=== PATIENT | female | born 1940 | race Caucasian/White ===

== ENCOUNTER 2024-11-23 09:43 | Emergency (ER) | payer MEDICARE, SELFPAY ==
[2024-11-23] VITALS (11 sets, daily range): BP systolic 127–156; BP diastolic 52–70; PULSE 69–78; RESP 13–16; TEMP 36.6–36.9; O2SAT 97–100; BMI 21.4
--- NOTE | ~2024-11-23 | XR_ITS ---
CLINICAL HISTORY: fall, pain with AROM AP pelvis and two views of the right hip Comparison: None provided Findings: No acute fracture or dislocation. Moderate degenerative changes bilaterally at the femoral-acetabular joints. Fecal retention within the colon noted. IMPRESSION: No acute findings. Moderate degenerative changes. This document has been electronically signed by: Aaron López MD on 11/23/2024 10:49:32
--- NOTE | ~2024-11-23 | CT_ITS ---
CLINICAL HISTORY: fall, head injury CT head without contrast Comparison: None Findings: Motion artifact somewhat limits interpretation. No evidence of acute territorial infarct. There is patchy low density in the periventricular and subcortical white matter. Diffuse volume loss is noted. No hydrocephalus. No hemorrhage, mass effect, mass lesion or midline shift. No abnormal extra-axial fluid. No calvarial fracture. Paranasal sinuses and mastoid air cells are clear. Impression: No acute intracranial process. Chronic changes as detailed. This document has been electronically signed by: Aaron López MD on 11/23/2024 11:06:01
--- NOTE | ~2024-11-23 | XR_ITS ---
CLINICAL HISTORY: fall 1 view chest x-ray. Comparison: None Findings: The lungs are adequately expanded. No focal consolidation. No effusion or pneumothorax. Cardiac and mediastinal contours are within normal limits. No acute osseous abnormality Impression: No acute process. This document has been electronically signed by: Aaron López MD on 11/23/2024 10:39:37
--- NOTE | ~2024-11-23 | CT_ITS ---
CLINICAL HISTORY: fall, pain CT cervical spine without contrast Comparison: None provided Findings: There is straightening of the normal cervical lordosis. No fracture or acute malalignment. Multilevel degenerative changes with disc space narrowing throughout the cervical spine. The facet joints are normally imbricated. No prevertebral soft tissue edema. Lung apicies demonstrate no acute process. Impression: Multilevel degenerative changes without evidence of acute fracture or acute malalignment. This document has been electronically signed by: Aaron López MD on 11/23/2024 10:57:42
--- NOTE | 2024-11-23 09:54 | ED.HEATRA ---
HPI - Head Injury General Chief complaint: Fall Stated complaint: FALL Time Seen by Provider: 11/23/24 09:43 Source: patient and EMS Mode of arrival: EMS Limitations: altered mental status History of Present Illness ED Provider: joshua sanchez registry np HPI Narrative: Patient is an 84-year-old female who presents emergency department via EMS coming from the [facility]. Evidently when she got out of bed this morning was endorsing feeling unwell. Staff at the assisted living facility had found her to be half lying in the bed and half of her body on the floor. Apparently they are not able to make physical contact with patients. They left the room to go and make a phone call to EMS when they return back to the room she was found lying on the floor. Patient can not recall events having occurred today. She has a history of underlying dementia. When asked, she states that her neck ?bothers?. On examination she localizes pain to the right hip. Related Data Home Medications ?Medication ?Instructions ?Recorded ?Confirmed donepezil 10 mg tablet 10 mg PO DAILY@1700 01/25/24 11/23/24 fluticasone propionate 50 1 spray intranasal DAILY 01/25/24 11/23/24 mcg/actuation nasal spray,suspension simvastatin 40 mg tablet 40 mg PO DAILY 01/25/24 11/23/24 cholecalciferol (vitamin D3) 25 25 mcg PO DAILY 11/23/24 11/23/24 mcg (1,000 unit) tablet citalopram 10 mg tablet 10 mg PO DAILY@1700 11/23/24 11/23/24 cyanocobalamin (vitamin B-12) 1,000 mcg PO DAILY 11/23/24 11/23/24 1,000 mcg tablet memantine 10 mg tablet 10 mg PO BID 11/23/24 11/23/24 multivitamin 1 tab PO DAILY 11/23/24 11/23/24 Allergies Allergy/AdvReac Type Severity Reaction Status Date / Time tramadol Allergy Mild Vomiting Verified 11/23/24 10:11 Review of Systems Review of Systems: Yes all other systems are reviewed and are negative [facility] Past Medical History Attestation statement: The following information was validated with the patient. Source: old records reviewed Surgical History History of knee replacement Family History Family History (Updated 01/25/24 @ 10:37 by LUIS F Hazel) Daughter Rheumatoid arthritis Sister Ulcerative colitis Mother Diabetes Social History Social History (Updated 01/25/24 @ 10:37 by LUIS F Hazel) Patient Tobacco Use Status: Never used Tobacco Smoked in Last 30 Days: No Use of substances other than those prescribed or required for medical reasons: No Advance Directives: No Advance Directives Information Provided: No Physical Exam Vital Signs: Vital Signs: Last Vital Signs Temp 97.5 F 11/26/24 05:42 Pulse 68 11/26/24 12:18 Resp 16 11/26/24 12:18 BP 168/74 H 11/26/24 12:18 Pulse Ox 98 11/26/24 12:18 O2 Del Method Room Air 11/26/24 12:18 BMI result Body Mass Index 21.4 Appearance: Alert.?Oriented to person, disoriented to place time and event. No acute distress.?Normal affect. Head: Normocephalic Eyes: Pupils equal, round and reactive to light. EOMI. Conjunctiva and sclera normal? No [place] sign noted. No raccoon eyes noted ENT: No septal hematoma, nares patent bilaterally. External auditory canal normal tympanic membrane pearly holley and intact bilaterally. Dentition normal, no fractured teeth. No lesions or lacerations of oropharynx. Uvula midline. Moist mucous membranes. Neck: Normal inspection.? Neck supple.??No palpable tenderness, step-off, deformities. CVS: Heart sounds normal. Normal heart rate and rhythm.? Pulses normal.?? Respiratory: No respiratory distress.? Lung sounds clear to auscultation bilaterally?? Abdomen: Soft and non-tender. Normoactive bowel sounds. ?? Skin: Skin warm and dry.? Normal skin color.? Normal skin turgor.?? Extremities: No lower extremity edema. Full AROM to left lower extremity, assumed prior right knee replacement with surgical scar, pain with AROM to the right hip? Neuro: Moves all extremities spontaneously. Sensation intact bilaterally. CN II-XII intact. No focal neuro deficits. Course Reevaluation(s) Reevaluation #1: I have attempted to contact patient's daughter Deonna, her primary contact listed on face sheet from assisted living facility, phone number listed is [phone], this unfortunately is not a an accurate phone number for Deonna. She has no prior visits to our hospital system. Attempted to alternatively contact patient's daughter Yeny, left voicemail for callback Received call back from patient's daughter Yeny, she reports that patient is new to this assisted living facility over the past 2 weeks. Evidently patient is diffuse went to visit a couple of days ago and she was so weak that she has been get out of bed on her own which is atypical for her. It does report the patient has advanced Alzheimer's dementia. Evidently there was a fall at the facility earlier this week, unclear history of exactly how the fall happened as it was conflicting reports, but was evaluated by paramedics and cleared without hospital transport. Recently had an injury where she was struck to a right lower extremity by a door sustaining a laceration that was Steri-Strips and bandaged. Reports that she has VNA services 3 times weekly. Yesterday she was advised from her sister Deonna that patient has a urinary tract infection. Time: 10:34 Reevaluation #2: CT of the head and cervical spine without acute intracranial pathology, degenerative changes in the cervical spine but no acute fracture or evidence of subluxation. Chest x-ray without consolidation infiltrate to suggest pneumonia, no pleural effusions no acute findings. X-ray of the right hip and pelvis revealing degenerative changes of the femoroacetabular joint, no acute fracture dislocation. ECG reveals a normal sinus rhythm with ventricular rate of 72, normal DAYAN, QTC 438, no ST-elevation. Urinalysis with 1+ blood in the urine trace leukocyte esterase otherwise no WBCs or urine bacteria seen, this may be skewed if she was recently started on antibiotics over based on the medical record provided from the assisted living facility I do not see any antibiotics prescribed, nursing staff contacted [facility], it appears as though she may have been prescribed Ceftin on 11/21/2024, woth seven doses remaining, will order accordingly. CBC is without leukocytosis anemia or thrombocytopenia. No electrolyte derangement. BUN 24 creatinine 1.13 no prior available for comparison, EGFR of 46 given recent weakness she may have some degree of underlying dehydration. In ED she has received normal saline 500 mL bolus. LFTs overall unremarkable. High sensitive troponin within normal range, EKG nonischemic suspect ACS. BNP of 79, no sign fluid volume overload to suggest CHF. Given her recent weakness, difficulty even getting out of bed, we will appreciate case management assistance with safe disposition planning as she has not been doing well in assisted living over the past few days, will require physical therapy evaluation Time: 12:03 Reevaluation #3: Time: 14:51 Date: 11/24/24 Provider: Sonal Sanchez CNP Patient in physician observation for case management needs, physical therapy recommending short-term rehab No acute events reported overnight.? No current issues or complaints. VS stable. Will continue to monitor. Time: 08:30 Date: 11/25/24 Provider: WALKER Godfrey Patient in physician observation for case management needs. No acute events reported overnight.? No current issues or complaints. VS stable. Patient is pending placement at [facility] facility. Will continue to monitor. Time: 08:11 Date: 11/26/24 Provider: WALKER Godfrey Patient in physician observation for case management needs. No acute events reported overnight.? No current issues or complaints. VS stable. Patient is pending placement at [facility] facility. Will continue to monitor. Time: 14:16 Date: 11/26/24 Provider: WALKER Godfrey Physician observation ended at 1416. After discussion with case management, patient will be discharged to [facility] via [facility] for short-term rehab. Patient agreeable. I have reviewed all workup results. CBC WNL. Chemistry without acute electrolyte abnormality requiring intervention. BUN slightly elevated to 24, normal creatinine. Liver function WNL. Total CK 280, she received IV fluids. No concern for rhabdo. Trop WNL. EKG WNL. CT head without bleed. CT cervical spine without fracture. Pelvic x-ray without fracture. Chest x-ray without pneumonia > she was noted to grab gelatinous stool this morning. C diff negative. GI panel showing norovirus. Patient aware. Educated on symptomatic treatment + hydration. Medications Administered Generic Name Dose Route Start Last Admin Trade Name Freq PRN Reason Stop Dose Admin Atorvastatin Calcium 20 mg 11/24/24 09:00 11/26/24 08:31 Atorvastatin Calcium 20 Mg Tablet PO 20 mg DAILY LOLITA Administration Cyanocobalamin 1,000 mcg 11/24/24 09:00 11/26/24 08:31 Cyanocobalamin (Vitamin B-12) 1,000 Mcg Tablet PO 1,000 mcg DAILY LOLITA Administration Donepezil HCl 10 mg 11/24/24 17:00 11/25/24 17:15 Donepezil Hcl 10 Mg Tablet PO 10 mg DAILY@1700 LOLITA Administration Escitalopram Oxalate 5 mg 11/24/24 17:00 11/25/24 17:15 Escitalopram Oxalate 5 Mg Tablet PO 5 mg DAILY@1700 LOLITA Administration Fluticasone Propionate 1 spray 11/24/24 09:00 11/26/24 08:31 Fluticasone Propionate Nasal 16 Gm Correll NOSTRIL-B 1 spray DAILY LOLITA Administration Memantine 10 mg 11/23/24 21:00 11/26/24 08:31 Memantine Hcl 10 Mg Tablet PO 10 mg BID LOLITA Administration Multivitamins/Vitamin C 1 tab 11/24/24 09:00 11/26/24 08:31 Multivitamin Tablet PO 1 tab DAILY LOLITA Administration Vitamin D 25 mcg 11/24/24 09:00 11/26/24 08:31 Cholecalciferol (Vitamin D3) 25 Mcg Tablet PO 25 mcg DAILY LOLITA Administration Discontinued Medications Generic Name Dose Route Start Last Admin Trade Name Hanny PRN Reason Stop Dose Admin Acetaminophen 975 mg 11/25/24 06:57 11/25/24 08:15 Acetaminophen 325 Mg Tablet PO 11/25/24 06:58 975 mg ONCE ONE Administration Cefuroxime Axetil 250 mg 11/23/24 13:00 11/26/24 08:31 Cefuroxime Axetil 250 Mg Tablet PO 11/26/24 09:01 250 mg BID LOLITA Administration Sodium Chloride 500 mls @ 999 mls/hr 11/23/24 10:30 11/23/24 12:37 Ns IV 11/23/24 11:00 Infused .Q31M LOLITA Infusion Medical Decision Making Medical Decision Making [facility] Narrative: Patient is an 84-year-old female past medical history of basal cell carcinoma of the lung, hyperlipidemia, hypertension, atrophic vaginitis, osteoarthritis, sciatica, CKD, right total knee arthroplasty, dementia who presents to the emergency department for evaluation after an unwitnessed fall as per HPI. Given her underlying dementia she is not a great historian, she is unable to tell me events precipitating her visit to the ED today. On review of systems she endorses a ?bother? to her neck and on physical examination appears to have pain to the right hip with active range of motion. She is in a hard cervical spine collar. Etiology of the fall is not exactly clear, per EMS report to nursing staff that they received from the facility she has a history of recurrent UTIs, not certain whether she is currently being treated for one. Plan to obtain CT of the head and cervical spine to evaluate for ICH, SDH, skull fracture, infarct, cervical spine fracture subluxation. Will obtain CBC to evaluate for leukocytosis/ anemia, CMP and lipase to evaluate for abnormal electrolytes /abnormal renal function/ abnormal hepatic/biliary function, EKG and troponin to evaluate for ischemia/ACS. Chest x-ray to evaluate for consolidation/ infiltrate/ mass/ pulmonary congestion and Urinalysis. Differential Diagnosis Differential Diagnoses: The differential diagnosis associated with the presentation includes (See narrative above) Admission/Observation Consideration of admission/observation: Escalation of care including admission/observation considered (See narrative above) Lab Data MDM Lab Attestation statement: I reviewed the patient's lab results. 11/23/24 11:22 11/23/24 11:22 Labs: Lab Results 11/23/24 11/23/24 11/26/24 Range/Units 10:52 11:22 10:18 WBC 5.7 (4.8-10.8) X10*3/uL RBC 4.13 L (4.20-5.50) X10*6/uL Hgb 12.7 (12.0-16.0) g/dl Hct 38.8 (37.0-47.0) % MCV 93.9 (80.0-98.0) fL MCH 30.8 (27.0-33.0) pg MCHC 32.7 (31.0-35.0) g/dl RDW 12.5 (11.0-16.0) % Plt Count 199 (160-400) X10*3/uL MPV 10.1 (9.4-12.3) fL Immature Gran % (Auto) 0.4 (0.0-0.4) % Neut % (Auto) 64.4 (45-73) % Lymph % (Auto) 23.3 (20-40) % Sterling % (Auto) 8.2 (2-11) % Eos % (Auto) 3.2 (0-4) % Baso % (Auto) 0.5 (0-2) % Lymph # (Auto) 1.3 (1.2-4.9) X10*3/uL Sterling # (Auto) 0.5 (0.1-1.2) X10*3/uL Eos # (Auto) 0.2 (0.0-0.4) X10*3/uL Baso # (Auto) 0.0 (0.0-0.2) X10*3/uL Abs Immat Gran (auto) 0.02 (0.00-0.03) X10*3/uL Absolute Neuts (auto) 3.7 (2.0-8.3) x10*3/uL Absolute Nucleated RBC 0.000 (0.0-0.012) X10*3/uL Nucleated RBC % (auto) 0.0 (0.0-0.2) /100WBC Sodium 141 (135-145) mmol/L Potassium 4.0 (3.3-5.1) mmol/L Chloride 108 (96-108) mmol/L Carbon Dioxide 27 (22-29) mmol/L Anion Gap 10 L (12-20) BUN 24 H (9-16) mg/dL Creatinine 1.13 (0.5-1.4) mg/dL Estim Creat Clear Calc 28.2 Estimated GFR 46 Random Glucose 98 (60-115) mg/dL Calcium 9.6 (8.4-10.2) mg/dL Magnesium 2.2 (1.6-2.6) mg/dL Total Bilirubin 0.3 (0.0-1.0) mg/dL AST 32 H (5-31) U/L ALT 25 (0-31) U/L Alkaline Phosphatase 80 (39-117) U/L Total Creatine Kinase 288 H (26-140) U/L Troponin I High Sens 4.8 (<3.5-17.0) ng/L B-Natriuretic Peptide 79 (<100) pg/mL Total Protein 7.3 (6.5-8.0) g/dL Albumin 4.2 (3.5-5.0) g/dL Urine Color Yellow Urine Appearance Clear Urine pH 5.5 (5.0-9.0) Ur Specific [place] 1.020 (1.005-1.025) Urine Protein Trace (Neg-Trace) mg/dL Urine Glucose (UA) Negative (Negative) mg/dL Urine Ketones Trace (Negative) mg/dL Urine Blood Small (1+) H (Negative) Urine Nitrite Negative (Negative) Ur Leukocyte Esterase Trace H (Negative) Urine RBC 0-2 (0-2) /HPF Urine WBC 0-5 (0-5) /HPF Ur Squamous Epith Cells 0-2 (0-2) /HPF Urine Bacteria None Seen (None Seen) Hyaline Casts 0-2 (0-2) /LPF Stl C. cayetanensis PCR Not Detected (Not Detect.) Stool Rotavirus A PCR Not Detected (Not Detect.) Stl Adenov F 40/41 PCR Not Detected (Not Detect.) Stool Astrovirus (PCR) Not Detected (Not Detect.) Stool Campylobacter PCR Not Detected (Not Detect.) Stool Cryptosporidium PCR Not Detected (Not Detect.) Stl Sh Tox Pr E STEC PCR Not Detected (Not Detect.) Stool E coli O157 PCR Not applicable (Not Detect.) Stl Enterotoxigenic E PCR Not Detected (Not Detect.) Stool EPEC (PCR) Not Detected (Not Detect.) Stool EAEC (PCR) Not Detected (Not Detect.) Stl E. histolytica PCR Not Detected (Not Detect.) Stool Giardia Lamblia PCR Not Detected (Not Detect.) Stl P. shigelloides PCR Not Detected (Not Detect.) Stool Salmonella PCR Not Detected (Not Detect.) Stool Sapovirus (PCR) Not Detected (Not Detect.) Stl Shigella/EIEC PCR Not Detected (Not Detect.) St Y.enterocolitica PCR Not Detected (Not Detect.) Stool Vibrio (PCR) Not Detected (Not Detect.) Stl Vibrio cholerae PCR Not Detected (Not Detect.) Stl Norovirus GI/GII PCR Detected A (Not Detect.) C. difficile Tox B Gene NEGATIVE (Negative) Influenza Type A (PCR) NEGATIVE (Negative) Influenza Type B (PCR) NEGATIVE (Negative) RSV RNA Qual (PCR) NEGATIVE (Negative) SARS-CoV-2 RNA (RT-PCR) NEGATIVE (Negative) Independent Interpretation I performed an independent interpretation of an: CT Scan (No ICH, no fracture) Radiology Impression Discussion of test interpretation with radiology: I have reviewed the radiologist's reading. Radiologist Impression: CT cervical spine without contrast Comparison: None provided Findings: There is straightening of the normal cervical lordosis. No fracture or acute malalignment. Multilevel degenerative changes with disc space narrowing throughout the cervical spine. The facet joints are normally imbricated. No prevertebral soft tissue edema. Lung apicies demonstrate no acute process. Impression: Multilevel degenerative changes without evidence of acute fracture or acute malalignment. CT head without contrast Comparison: None Findings: Motion artifact somewhat limits interpretation. No evidence of acute territorial infarct. There is patchy low density in the periventricular and subcortical white matter. Diffuse volume loss is noted. No hydrocephalus. No hemorrhage, mass effect, mass lesion or midline shift. No abnormal extra-axial fluid. No calvarial fracture. Paranasal sinuses and mastoid air cells are clear. Impression: No acute intracranial process. Chronic changes as detailed. 1 view chest x-ray. Comparison: None Findings: The lungs are adequately expanded. No focal consolidation. No effusion or pneumothorax. Cardiac and mediastinal contours are within normal limits. No acute osseous abnormality Impression: No acute process. AP pelvis and two views of the right hip Comparison: None provided Findings: No acute fracture or dislocation. Moderate degenerative changes bilaterally at the femoral-acetabular joints. Fecal retention within the colon noted. IMPRESSION: No acute findings. Moderate degenerative changes. Discharge Plan Discharge Clinical Impression: Fall, Weakness, Norovirus Patient Disposition: Xfer Inpatient Rehab Fac Transfer Details: [facility] for STR Prescriptions: No Action citalopram 10 mg tablet 10 mg PO DAILY@1700 memantine 10 mg tablet 10 mg PO BID multivitamin Tablet 1 tab PO DAILY cyanocobalamin (vitamin B-12) 1,000 mcg Tablet 1,000 mcg PO DAILY cholecalciferol (vitamin D3) 25 mcg (1,000 unit) Tablet 25 mcg PO DAILY donepezil 10 mg tablet 10 mg PO DAILY@1700 fluticasone propionate 50 mcg/actuation spray,suspension 1 spray intranasal DAILY Rx Instructions: administer into each nostril simvastatin 40 mg tablet 40 mg PO DAILY Print Language: Portuguese
--- NOTE | 2024-11-23 10:04 | ECG_ITS ---
Test Reason : FALL Blood Pressure : */* mmHG Vent. Rate : 72 BPM Atrial Rate : 72 BPM P-R Int : 142 ms QRS Dur : 76 ms QT Int : 400 ms P-R-T Axes : 70 3 38 degrees QTcB Int : 438 ms Normal sinus rhythm Normal ECG No previous ECGs available Referred By: Sonal Lua Electronically Signed By: Tyrese Stahl
[2024-11-23 11:00] LABS: Appearance Urine Clear; Color Urine Yellow; Glucose Urine UA Negative (Negative); Leukocyte Esterase Urine Trace (Negative); Nitrite Urine Negative (Negative); PH 5.5 (5.0-9.0); UMIC TRIGGER UACC YES; Urine Blood Small (1+) (Negative); Urine Ketones Trace mg/dL (Negative); Urine Protein Trace mg/dL (Neg-Trace)
[2024-11-23 11:16] LABS: Bacteria Urine None Seen (None Seen); Hyaline Casts Urine 0-2 /LPF (0-2); RBC Urine 0-2 /HPF (0-2); Squamous Epithelial Cell Urine 0-2 /HPF (0-2); WBC Urine 0-5 /HPF (0-5)
[2024-11-23] MEDS: 0.9 % Sodium Chloride 500 ML 999 ML IV (11:24)
[2024-11-23 11:27] LABS: MANUAL DIFF FLAG NO
--- NOTE | 2024-11-23 11:28 | PC.NURSE ---
C collar removed per provider; IVF's infusing per orders
[2024-11-23 11:33] LABS: Basophils Percent Auto 0.5 % (0-2); Eosinophils Absolute Auto 0.2 X10*3/uL (0.0-0.4); Eosinophils Percent Auto 3.2 % (0-4); Hematocrit 38.8 % (37.0-47.0); Hemoglobin 12.7 g/dl (12.0-16.0); Imm Gran Abs Auto 0.02 X10*3/uL (0.00-0.03); Imm Gran Pct Auto 0.4 % (0.0-0.4); Lymphocytes Absolute Auto 1.3 X10*3/uL (1.2-4.9); Lymphocytes Percent Auto 23.3 % (20-40); Mean Corpuscular HGB Conc 32.7 g/dl (31.0-35.0); Mean Corpuscular Hemoglobin 30.8 pg (27.0-33.0); Mean Corpuscular Volume 93.9 fL (80.0-98.0); Mean Platelet Volume 10.1 fL (9.4-12.3); Monocytes Absolute Auto 0.5 X10*3/uL (0.1-1.2); Monocytes Percent Auto 8.2 % (2-11); Neutrophils Absolute Auto 3.7 x10*3/uL (2.0-8.3); Neutrophils Percent Auto 64.4 % (45-73); Platelet Count 199 X10*3/uL (160-400); Red Blood Count 4.13 X10*6/uL (4.20-5.50); Red Cell Distribution Width 12.5 % (11.0-16.0); White Blood Count 5.7 X10*3/uL (4.8-10.8)
[2024-11-23 11:42] LABS: Alanine Aminotransferase 25 U/L (0-31); Albumin Level 4.2 g/dL (3.5-5.0); Alkaline Phosphatase 80 U/L (39-117); Anion Gap 10 (12-20); Aspartate Amino Transferase 32 U/L (5-31); Bilirubin Total 0.3 mg/dL (0.0-1.0); Blood Urea Nitrogen 24 mg/dL (9-16); Calcium 9.6 mg/dL (8.4-10.2); Carbon Dioxide 27 mmol/L (22-29); Chloride 108 mmol/L (96-108); Creatinine Clr Calc Pharmacy 28.2; Estimated Glomerular Filt Rate 46; Glucose Random 98 mg/dL (60-115); Magnesium 2.2 mg/dL (1.6-2.6); Sodium 141 mmol/L (135-145); Total Protein 7.3 g/dL (6.5-8.0)
[2024-11-23 11:47] LABS: B Type Natriuretic Peptide 79 pg/mL (<100)
[2024-11-23 11:49] LABS: Troponin-I High Sensitivity 4.8 ng/L (<3.5-17.0)
[2024-11-23 12:08] LABS: Influenza A PCR NEGATIVE (Negative); Influenza B PCR NEGATIVE (Negative); Resp Syncy Virus RNA Qual PCR NEGATIVE (Negative); SARS COV2 PCR INHOUSE NEGATIVE (Negative)
[2024-11-23] MEDS: cefuroxime axetiL 250 MG TABLET PO ×2 (13:24→21:51)
--- NOTE | 2024-11-23 14:34 | PC.NURSE ---
Pt resting quietly; family at bedside; pt has declined something to eat at this time except crackers; pt tolerating PO intake without issue except pills, which need to be crushed, per family
--- NOTE | 2024-11-23 18:50 | PC.NURSE ---
P repositioned in bed for dinner; pt denies pain at this time; tolerating PO intake
--- NOTE | 2024-11-23 19:27 | PC.NURSE ---
med rec completed with facility med list, vitamins not included at this time
--- NOTE | 2024-11-23 20:47 | PHA.MEDREC ---
Pharmacy Consult ? Medication Reconciliation Pharmacy has completed the medication reconciliation. RUBIN De La Rosa sent up med list from [employer]. RN also verified with patients daughter, Deonna to confirm she is not taking losartan, HCTZ, metformin.
[2024-11-23] MEDS: Memantine HCl 10 MG TABLET PO (21:51)
--- NOTE | 2024-11-23 22:01 | PC.NURSE ---
pt tolerated crushed meds in pudding well. denies pain or discomfort at this time. pt resting comfortably, call vines w/in reach
--- NOTE | 2024-11-24 06:00 | PC.NURSE ---
pt resting comfortably throughout the night, purewick remains in place, pt resting on L side for most of the night. call vines w/in reach
[2024-11-24 06:11] VITALS: BP 151/57; PULSE 70; RESP 18; TEMP 36.8; O2SAT 99
--- NOTE | 2024-11-24 06:11 | PC.NURSE ---
pt reposition onto R side. brief holding purewick was removed
--- NOTE | 2024-11-24 09:34 | PC.NURSE ---
patient placed into hospital bed for comfort. cleaned and repositioned in bed. pure wick in place. patient stating she does not have much of an appetite and did not want to eat breakfast. resting quietly in room with call vines within reach, no complaints at this time.
--- NOTE | 2024-11-24 09:45 | PHA.MEDREC ---
Pharmacy Consult ? Medication Reconciliation Pharmacy has completed the medication reconciliation. Utilized list.
--- NOTE | 2024-11-24 09:54 | PHA.MEDREC ---
Pharmacy Consult ? Medication Reconciliation Pharmacy has reviewed the medication reconciliation completed by nursing.
[2024-11-24] MEDS: cefuroxime axetiL 250 MG TABLET PO ×2 (10:48→20:32)
[2024-11-24] MEDS: Cholecalciferol (Vitamin D3) 25 MCG TABLET PO (10:48)
[2024-11-24] MEDS: Multivitamin TABLET 1 TAB PO (10:48)
[2024-11-24] MEDS: Atorvastatin Calcium 20 MG TABLET PO (10:48)
[2024-11-24] MEDS: Cyanocobalamin (Vitamin B-12) 1,000 MCG TABLET 1000 MCG PO (10:48)
[2024-11-24] MEDS: Memantine HCl 10 MG TABLET PO ×2 (10:48→20:32)
[2024-11-24 10:56] VITALS: BP 157/80; PULSE 77; RESP 16; TEMP 36.6; O2SAT 99
--- NOTE | 2024-11-24 11:49 | MHC.CM.PN ---
Patient from [facility] 11/23/24 s/p fall. PT eval recommendation is STR. Spoke with patients dtr Deonna. She requested STR in [facility]( close to family). Referrals have been sent to [facility] SNFs. [facility] a bed. [place] [facility] is O[facility], declined. [facility] has not responded to the referral yet. DP to STR via BLS once insurance authorization is obtained. Patients dtr reports that patient has [facility] and is active with [facility].
--- NOTE | 2024-11-24 15:57 | MHC.CM.PN ---
A bed offer from [facility] has been accepted. [facility] for STR via BLS once insurance authorization has been received.
[2024-11-24 18:56] VITALS: BP 149/71; PULSE 78; RESP 18; TEMP 36.9; O2SAT 98
[2024-11-24] MEDS: Escitalopram Oxalate 5 MG TABLET PO (20:05)
[2024-11-24] MEDS: Donepezil HCl 10 MG TABLET PO (20:05)
--- NOTE | 2024-11-24 20:29 | PC.NURSE ---
Toileting assistance provided. Pt ambulates to the bathroom with a steady gait.
[2024-11-25 06:17] VITALS: BP 135/80; PULSE 83; RESP 16; TEMP 36.9; O2SAT 98
--- NOTE | 2024-11-25 06:25 | PC.NURSE ---
pt slept thru the night nad. q2 hour roundings and repositioning. this AM noted purewick not working, small amound of incontinence. bed linen changed. patrick care given. new purewick in place. pt repositioned to side. vitals obtained. pt denies pain. warm blankets given. bed alarm on. call vines within reach.
[2024-11-25] MEDS: Memantine HCl 10 MG TABLET PO ×2 (08:15→21:08)
[2024-11-25] MEDS: Atorvastatin Calcium 20 MG TABLET PO (08:15)
[2024-11-25] MEDS: Cholecalciferol (Vitamin D3) 25 MCG TABLET PO (08:15)
[2024-11-25] MEDS: Multivitamin TABLET 1 TAB PO (08:15)
[2024-11-25] MEDS: Cyanocobalamin (Vitamin B-12) 1,000 MCG TABLET 1000 MCG PO (08:15)
[2024-11-25] MEDS: Acetaminophen 325 MG TABLET 975 MG PO (08:15)
[2024-11-25] MEDS: cefuroxime axetiL 250 MG TABLET PO ×2 (08:15→21:09)
--- NOTE | 2024-11-25 08:44 | MHC.CM.ED ---
Addendum entered by Maame Meek 11/25/24 10:25: Received telephone call from Bessie of [employer]. She can be reached via telephone at [phone]. Bessie states patient no longer has HNE. Brittni Jin made aware. ER H&P faxed to Bessie at [phone]. Original Note: Patient remains in ER. Brittni Jin is in the process of obtaining insurance auth. Copy of HCP requested from [facility]. Continue to monitor for d/c needs.
--- NOTE | 2024-11-25 12:16 | MHC.CM.ED ---
Received notification from Brittni Jin that they are not contracted with patient's [facility]. [facility] and [facility] are also not contracted. Referral will be broadcasted in [employer]. Attempted to speak with patient's daughter/HCP, Deonna, via telephone at [phone]. Left message requesting return telephone call. Continue to monitor for d/c needs.
--- NOTE | 2024-11-25 14:03 | MHC.CM.ED ---
[facility] and [facility] are able to offer a bed. Waiting to hear if Lona at [facility] is able to offer a bed. Spoke with Deonna via telephone at [phone]. [facility] is 1st choice. [facility] has been asked to obtain insurance auth. Continue to monitor for d/c needs.
[2024-11-25 15:17] VITALS: BP 134/68; PULSE 83; RESP 14; TEMP 36.6; O2SAT 100
[2024-11-25] MEDS: Escitalopram Oxalate 5 MG TABLET PO (17:15)
[2024-11-25] MEDS: Donepezil HCl 10 MG TABLET PO (17:15)
--- NOTE | 2024-11-25 18:16 | MHC.EDTECH ---
Patient given dinner tray
[2024-11-25 20:30] VITALS: BP 146/70; PULSE 80; RESP 16; TEMP 36.3; O2SAT 96
--- NOTE | 2024-11-25 21:12 | PC.NURSE ---
Patient tolerated crushed meds in apple sauce well. Patient denies any pain, currently [facility] comfortably [facility] bed[facility] bed [facility] engaged, call vines within patient's reach. Plan of care ongoing.
[2024-11-25 22:00] VITALS: BP 167/68; PULSE 75; RESP 16; TEMP 36.6; O2SAT 96
--- NOTE | 2024-11-26 04:19 | PC.NURSE ---
Patient currently sleeping in the hospital bed, resp even and non labored, purewick in pace, bed alarm is on, call vines in patient's reach.
[2024-11-26 05:42] VITALS: BP 179/71; PULSE 75; RESP 18; TEMP 36.4; O2SAT 99
--- NOTE | 2024-11-26 07:27 | PC.NURSE ---
800ml of clear, dark yellow, non-foul smelling urine emptied from purewick canister. perineal area checked - no incontinence of urine/stool at this time. pt turned/repositioned to comfort. breakfast tray in place. offered patient for assistance - pt declined at this time. pt otherwise offers no complaints. on RA w/o difficulty. no s ob/wob noted. respirations even/unlabored. bed alarm in place for safety precautions. plan of care ongoing. call vines placed within reach.
[2024-11-26] MEDS: Cyanocobalamin (Vitamin B-12) 1,000 MCG TABLET 1000 MCG PO (08:31)
[2024-11-26] MEDS: Multivitamin TABLET 1 TAB PO (08:31)
[2024-11-26] MEDS: Fluticasone Propionate Nasal 16 GM SPRAY 1 SPRAY NOSTRIL-B (08:31)
[2024-11-26] MEDS: Memantine HCl 10 MG TABLET PO (08:31)
[2024-11-26] MEDS: Atorvastatin Calcium 20 MG TABLET PO (08:31)
[2024-11-26] MEDS: cefuroxime axetiL 250 MG TABLET PO (08:31)
[2024-11-26] MEDS: Cholecalciferol (Vitamin D3) 25 MCG TABLET PO (08:31)
--- NOTE | 2024-11-26 08:36 | PC.NURSE ---
medication administered per provider order. medication crushed w/ applesauce. pt tolerated well w/o difficulty.
--- NOTE | 2024-11-26 08:54 | MHC.CM.ED ---
Addendum entered by Maame Meek 11/26/24 10:44: ID# obtained and provided to Cristo Duke. Waiting for auth. Original Note: Patient remains in ER. [facility] is trying to obtian insurance auth. However, they need her policy # for [id number]. Attempted to speak to Bre at [employer] via telephone at [phone]. Left voicemail requesting ID# and call back. Continue to monitor for d/c needs.
--- NOTE | 2024-11-26 10:14 | PC.NURSE ---
pt noted to have a large BM w/ a large amount of gelatinous stool. pt denies any abd pain/nausea. provider notified/aware. stool specimen's obtained/sent to lab. complete bed change completed. pt repositioned to comfort. bed alarm remains in place.
[2024-11-26 11:35] LABS: CDiff Gene PCR NEGATIVE (Negative)
[2024-11-26 11:52] LABS: Adenovirus F 40/41 Not Detected (Not Detect.); Astrovirus Not Detected (Not Detect.); Campylobacter Not Detected (Not Detect.); Cryptosporidium Not Detected (Not Detect.); Cyclospora cayetanensis Not Detected (Not Detect.); E. coli EAEC Not Detected (Not Detect.); E. coli EPEC Not Detected (Not Detect.); E. coli ETEC Not Detected (Not Detect.); E. coli STEC Not Detected (Not Detect.); Entamoeba histolytica Not Detected (Not Detect.); Giardia lamblia Not Detected (Not Detect.); Plesiomonas shigelloides Not Detected (Not Detect.); Rotavirus A Not Detected (Not Detect.); Salmonella Not Detected (Not Detect.); Sapovirus Not Detected (Not Detect.); Shigella sp./EIEC Not Detected (Not Detect.); Vibrio Not Detected (Not Detect.); Vibrio Cholerae Not Detected (Not Detect.); Yersinia enterocolitica Not Detected (Not Detect.)
[2024-11-26 11:58] LABS: Norovirus GI/GII Detected (Not Detect.)
--- NOTE | 2024-11-26 12:05 | PC.NURSE ---
Addendum entered by Obed Krishnamurthy RN 11/26/24 12:32: Precautions in place Original Note: Received critical lab result. Patient positive for norovirus from GI panel. Patient denies pain and is pleasantly confused
[2024-11-26 12:18] VITALS: BP 168/74; PULSE 68; RESP 16; O2SAT 98
--- NOTE | 2024-11-26 13:10 | MHC.CM.ED ---
Patient remains in ER. Insurance auth obtained by [facility]. Joanna VENTURA booked. Med nec with chart. Patient, daughter Jorge Ying RN and Linh CARDOSO aware. Continue to monitor for d/c needs.
[2024-11-26 14:39] VITALS: BP 188/63; PULSE 70; RESP 16; TEMP 36.3; O2SAT 100
--- NOTE | 2024-11-26 15:08 | PC.NURSE ---
Report given to [facility] upon discharge. Patient cleaned up before transport. [facility] called gave report to Maury. Patient currently in route to facility.
== END 2024-11-26 15:10 ==
PROVIDERS: Nurse Practitioner Family; Physician Assistant Medical; Emergency Provider Emergency Medicine; PCP Internal Medicine
DX: A08.11 Acute gastroenteropathy due to Norwalk agent (principal); R53.1 Weakness; M54.2 Cervicalgia; M25.551 Pain in right hip; R29.6 Repeated falls; Z91.81 History of falling; G30.9 Alzheimer's disease, unspecified; F02.80 Dementia in other diseases classified elsewhere, unspecified severity, without behavioral disturbance, psychotic disturbance, mood disturbance, and anxiety; I10 Essential (primary) hypertension; E78.5 Hyperlipidemia, unspecified; Z03.818 Encounter for observation for suspected exposure to other biological agents ruled out; Z79.02 Long term (current) use of antithrombotics/antiplatelets; Z79.899 Other long term (current) drug therapy
CPT/HCPCS: 0241U; 36415; 70450; 71045; 72125; 73502; 80053; 81001; 81003; 82550; 83735; 83880; 84484; 85025; 87493; 87507; 93005; 96360; 97162; 99285

== ENCOUNTER → 2024-11-23 10:04 | Outpatient (BNV) | payer MEDICARE, SELFPAY | PROVIDERS: Emergency Provider Emergency Medicine; Visit Provider Radiology Vascular & Interventional Radiology | DX: M50.30 Other cervical disc degeneration, unspecified cervical region (principal); S09.90XA Unspecified injury of head, initial encounter; M16.11 Unilateral primary osteoarthritis, right hip; R41.82 Altered mental status, unspecified | CPT/HCPCS: 70450; 71045; 72125; 73502 ==

== ENCOUNTER → 2024-11-23 10:04 | Outpatient (BNV) | payer MEDICARE, SELFPAY | PROVIDERS: Emergency Provider Emergency Medicine; Visit Provider Internal Medicine Cardiovascular Disease | DX: Z13.6 Encounter for screening for cardiovascular disorders (principal); W19.XXXA Unspecified fall, initial encounter | CPT/HCPCS: 93010 ==